=== PATIENT | female | born 2005 | race Two or more races ===

== ENCOUNTER 2024-04-15 00:47 | Inpatient (IN) | payer OTHER ==
[~2024-04-15] VITALS: Ht 167.6 cm; Wt 59.1 kg
[2024-04-15 01:14] LABS: BASOPHILS % (AUTO) 0.2 % (0.0-2.0); EOSINOPHILS % (AUTO) 0.2 % (1.0-6.0); HEMATOCRIT 46.4 % (36-46); HEMOGLOBIN 15.1 g/dL (12.0-16.0); LYMPHOCYTES # (AUTO) 0.9 K/uL (1.0-4.8); LYMPHOCYTES % (AUTO) 15.4 % (22.0-44.0); MEAN CORPUSCULAR HEMOGLOBIN 28.6 pg (26.0-34.0); MEAN CORPUSCULAR HGB CONC 32.5 G/dL (31.0-37.0); MEAN CORPUSCULAR VOLUME 88 fL (80-100); MONOCYTES # (AUTO) 0.1 K/uL (0.1-1.0); MONOCYTES % (AUTO) 2.1 % (2.0-9.0); NEUTROPHILS # (AUTO) 4.6 K/uL (1.8-7.7); NEUTROPHILS % (AUTO) 82.1 % (40.0-70.0); PLATELET COUNT (AUTO) 384 K/uL (150-450); RED BLOOD CELL COUNT(AUTO) 5.29 MIL/uL (4.00-5.20); RED CELL DISTRIBUTION WIDTH 13.3 % (11.5-14.5); WHITE BLOOD COUNT (AUTO) 5.6 K/uL (4.5-11.0)
[2024-04-15 01:25] LABS: ANION GAP 14 mmol/L (8-16); CALCIUM, TOTAL 8.8 mg/dL (8.8-10.5); CARBON DIOXIDE 25 mmol/L (22-29); CHLORIDE 100 mmol/L (98-107); CREATININE 0.61 mg/dL (0.60-1.30); GLOMERULAR FILTR. RATE CALC > 60 mL/min (>60); GLUCOSE,RANDOM 111 mg/dL (70-110); POTASSIUM 3.9 mmol/L (3.5-5.1); SODIUM SERUM 139 mmol/L (136-145); UREA NITROGEN, BLOOD 9 mg/dL (7-18)
[2024-04-15 01:32] LABS: ALANINE AMINOTRANSFERASE 13 U/L (12-78); ALBUMIN 3.8 g/dL (3.4-5.0); ALKALINE PHOSPHATASE 75 U/L (46-116); ASPARTATE AMINOTRANSFERASE 17 U/L (15-37); BILIRUBIN,TOTAL 0.8 mg/dL (0.1-1.0); TOTAL PROTEIN, SERUM 7.6 g/dL (6.4-8.2)
[2024-04-15 01:50] LABS: ALCOHOL, BLOOD (SERUM) < 3 mg/dL (0-10)
[2024-04-15] MEDS ORDERED: ONDANSETRON HCL 4 MG/2 ML VIAL IVP PRN (02:30)
[2024-04-15] MEDS ORDERED: KETOROLAC TROMETHAMINE 15 MG/ML VIAL IVP PRN (02:30)
[2024-04-15] MEDS: ONDANSETRON 4 MG TABLET PO ONE (03:11)
[2024-04-15] MEDS: ACETAMINOPHEN 325 MG TABLET PO ONE (03:12)
[2024-04-15 04:54] VITALS: BP 104/56; PULSE 81; RESP 18; TEMP 99; O2SAT 97
[2024-04-15 07:27] VITALS: BP 111/66; PULSE 75; RESP 18; TEMP 98.8; O2SAT 100
[2024-04-15 07:45] LABS: ALCOHOL, URINE DRUG SCREEN NEGATIVE (NEGATIVE); AMPHET/METH SCREEN,URINE NEGATIVE (NEGATIVE); BARBITURATE SCREEN, URINE NEGATIVE (NEGATIVE); BENZODIAZEPINES SCREEN,URINE NEGATIVE (NEGATIVE); CANNABINOID SCREEN,URINE NEGATIVE (NEGATIVE); COCAINE SCREEN,URINE NEGATIVE (NEGATIVE); METHADONE SCREEN, URINE NEGATIVE (NEGATIVE); OPIATE SCREEN,URINE NEGATIVE (NEGATIVE); PHENCYCLIDINE SCREEN,URINE NEGATIVE (NEGATIVE)
[2024-04-15] MEDS: DOCUSATE SODIUM 100 MG CAPSULE PO SCH (08:24)
[2024-04-15] MEDS: HEPARIN SODIUM,PORCINE 5,000 UNITS/ML VIAL SQ SCH (08:24)
[2024-04-15] MEDS: ACETAMINOPHEN 325 MG TABLET PO PRN (08:30)
[2024-04-15] MEDS ORDERED: IBUPROFEN 600 MG TABLET PO PRN ×2 (13:30)
[2024-04-15] MEDS ORDERED: MAG HYDROX/ALUMINUM HYD/SIMETH ES 30 ML SUSPENSION UDCUP PO PRN ×2 (13:30)
[2024-04-15] MEDS ORDERED: ACETAMINOPHEN 325 MG TABLET PO PRN (13:30)
[2024-04-15] MEDS ORDERED: HydrOXYzine PAMOATE 50 MG CAPSULE PO PRN ×2 (13:30)
[2024-04-15] MEDS ORDERED: PROMETHAZINE HCL 25 MG TABLET PO PRN (13:30)
[2024-04-15] MEDS ORDERED: BACLOFEN 10 MG TABLET PO PRN (13:30)
[2024-04-15] MEDS ORDERED: CloNIDine HCL 0.1 MG TABLET PO PRN (13:30)
[2024-04-15] MEDS ORDERED: DICYCLOMINE HCL 10 MG CAPSULE PO PRN (13:30)
[2024-04-15] MEDS: SODIUM CHLORIDE 0.45% 1,000 ML IV SCH (13:58)
[2024-04-15 16:57] VITALS: BP 109/62; PULSE 70; RESP 18; TEMP 98.5; O2SAT 98
[2024-04-15] MEDS: CloNIDine HCL 0.1 MG TABLET PO SCH (16:59)
[2024-04-15 20:00] VITALS: BP 108/60; PULSE 63; RESP 18; TEMP 98.3; O2SAT 99
[2024-04-15] MEDS: TraZODone HCL 50 MG TABLET PO PRN (20:27)
[2024-04-16 04:00] VITALS: BP 107/62; PULSE 55; RESP 20; TEMP 98.6; O2SAT 99
[2024-04-16 07:10] LABS: ANION GAP 9 mmol/L (8-16); CALCIUM, TOTAL 8.4 mg/dL (8.8-10.5); CARBON DIOXIDE 26 mmol/L (22-29); CHLORIDE 107 mmol/L (98-107); CREATININE 0.54 mg/dL (0.60-1.30); GLOMERULAR FILTR. RATE CALC > 60 mL/min (>60); GLUCOSE,RANDOM 121 mg/dL (70-110); POTASSIUM 4.1 mmol/L (3.5-5.1); SODIUM SERUM 142 mmol/L (136-145); UREA NITROGEN, BLOOD 7 mg/dL (7-18)
[2024-04-16 07:24] LABS: BASOPHILS % (AUTO) 0.5 % (0.0-2.0); EOSINOPHILS % (AUTO) 0 % (1.0-6.0); HEMATOCRIT 40.4 % (36-46); HEMOGLOBIN 13.8 g/dL (12.0-16.0); LYMPHOCYTES # (AUTO) 1.9 K/uL (1.0-4.8); LYMPHOCYTES % (AUTO) 23.9 % (22.0-44.0); MEAN CORPUSCULAR HEMOGLOBIN 29.6 pg (26.0-34.0); MEAN CORPUSCULAR HGB CONC 34.3 G/dL (31.0-37.0); MEAN CORPUSCULAR VOLUME 87 fL (80-100); MONOCYTES # (AUTO) 0.5 K/uL (0.1-1.0); MONOCYTES % (AUTO) 6.8 % (2.0-9.0); NEUTROPHILS # (AUTO) 5.6 K/uL (1.8-7.7); NEUTROPHILS % (AUTO) 68.8 % (40.0-70.0); PLATELET COUNT (AUTO) 361 K/uL (150-450); RED BLOOD CELL COUNT(AUTO) 4.67 MIL/uL (4.00-5.20); RED CELL DISTRIBUTION WIDTH 12.7 % (11.5-14.5); WHITE BLOOD COUNT (AUTO) 8.1 K/uL (4.5-11.0)
[2024-04-16 07:55] VITALS: BP 116/64; PULSE 67; RESP 18; TEMP 99.3; O2SAT 100
[2024-04-16 13:00] VITALS: BP 105/62; PULSE 58; RESP 18; O2SAT 99
[2024-04-16] MEDS: LOPERAMIDE HCL 2 MG/15 ML SUSPENSION UDCUP PO PRN (14:17)
[2024-04-16 17:30] VITALS: BP 114/70; PULSE 83; RESP 18; TEMP 99; O2SAT 100
[2024-04-16 20:04] VITALS: BP 107/71; PULSE 73; RESP 18; TEMP 98.5; O2SAT 94
[2024-04-16 21:29] VITALS: BP 92/56; PULSE 71; RESP 18; TEMP 98.3; O2SAT 98
[2024-04-17 04:28] VITALS: BP 100/67; PULSE 59; RESP 18; TEMP 98.5; O2SAT 97
[2024-04-17 07:59] VITALS: BP 119/68; PULSE 54; RESP 18; TEMP 98.4; O2SAT 99
[2024-04-17 17:40] VITALS: BP 104/57; PULSE 58; RESP 18; TEMP 98.5; O2SAT 97
[2024-04-17 20:10] VITALS: BP 108/67; PULSE 79; RESP 18; TEMP 98.6; O2SAT 99
== END 2024-04-17 21:53 | DRG 392 ==
LOC: EMS 00:47 → EDH 02:37 → 6N 04:23
PROVIDERS: ADMIT Internal Medicine; ATTEND Internal Medicine
DX: R11.0 Nausea (principal); F11.23 Opioid dependence with withdrawal; F43.9 Reaction to severe stress, unspecified
CPT/HCPCS: 80048; 80053; 80307; 83735; 84703; 85025; 99285; G0480; J1644; Q0162